=== PATIENT | female | born 1975 | race American Indian/Alaskan Native ===

== ENCOUNTER 2017-09-30 14:36 | Emergency (ER) | payer OTHER ==
[2017-09-30 14:47] VITALS: BP 151/89
--- NOTE | 2017-09-30 15:30 | Emergency Department Report ---
HPI - General Chief Complaint: Allergic Reaction Time Seen by Provider: 09/30/17 14:58 - HPI HPI: Patient is a 42-year-old female with no prior medical history other than consistent allergies who presents to ED complaining of right eyes and itching 3 days. Patient states that she was outside Saturday afternoon sleeping her porch and shortly after that starts experiencing some nose scratching. Patient is later on that day right eye got a bit swollen. Patient states she took some Benadryl Saturday and Saturday and swelling did not go down. Patient states she went to her primary care today around 11 AM and was given steroid shot around 12 :30 today. Patient states she also feels stuffy and says that his sinuses are acting up stuffed up. Patient says she went home and ate after she ate some peanuts she felt like she needed to come in to be evaluated. She denies wearing glasses or using contacts. She denies lower vision or loss of vision. She denies eye trauma or injuries to the eye. She denies difficulty swallowing or throat pain ED Past Medical Hx - Past Medical History Previous Medical History?: Yes Hx Asthma: Yes - Surgical History Past Surgical History?: No - Social History Smoking Status: Never Smoker Substance Use Type: None - Medications Home Medications: Home Medications Medication Instructions Recorded Confirmed Last Taken Type Cetirizine HCl [Zyrtec] 10 mg PO DAILY #30 tablet 09/30/17 Unknown Rx Erythromycin [Erythromycin Ophth 1 applic OP BID #1 tube 09/30/17 Unknown Rx Oint] Pseudoephedrine ER [Sudafed 12 Hr] 120 mg PO BID #20 tablet.er 09/30/17 Unknown Rx predniSONE [Deltasone] 20 mg PO QDAY #4 tab 09/30/17 Unknown Rx ED Review of Systems ROS: Stated complaint: ALLERGIC REACTION Other details as noted in HPI Constitutional: denies: chills, fever Eyes: denies: eye pain, eye discharge, vision change ENT: denies: ear pain, throat pain Respiratory: denies: cough, shortness of breath, wheezing Cardiovascular: denies: chest pain, palpitations Endocrine: no symptoms reported Gastrointestinal: denies: abdominal pain, nausea, diarrhea Genitourinary: denies: urgency, dysuria, discharge Musculoskeletal: denies: back pain, joint swelling, arthralgia Skin: denies: rash, lesions Neurological: denies: headache, weakness, paresthesias Psychiatric: denies: anxiety, depression Hematological/Lymphatic: denies: easy bleeding, easy bruising Physical Exam - Physical Exam Vital Signs: Vital Signs 09/30/17 14:45 Temperature 98.8 F Pulse Rate 111 H Respiratory 16 Rate Blood Pressure 151/89 O2 Sat by Pulse 96 Oximetry Physical Exam: GENERAL: Alert and oriented x3, no apparent distress, Normal Gait, atraumatic. HEAD: Head is normocephalic and a-traumatic. EYES: Extra ocular muscles are intact. Pupils are equal, round, and reactive to light and accommodation. Bilateral sclerae nonicteric erythematous, right upper eyelid moderately swollen, nontender to palpation, no conjunctival erythema, vision is intact bilaterally EARS: symetrical, atraumatic, non tender, ear canal clear and moderate cerumen, tympanic membrance non inflamed. gross auditory nml bilaterally. NOSE: Nose symetrical, Nontender,Nares appeared normal. Mildly inflamed turbinates MOUTH:Mouth is well hydrated and without lesions. Tonsils nonerythematous or swollen, Uvula midline, Tongue not elevated. Mucous membranes are moist. Posterior pharynx clear, no exudate or lesions. Patent airways. NECK: Supple. Non edematous, No lymphadenopathy or thyromegaly. No C-spine tenderness LUNGS: Symetrical with respiration, No wheezing, no rales or crackles, CTAB. HEART: S1, S2 present, regular rate and rhythm without murmur, no rubs, no gallops. Non tender to palpation NEUROLOGIC: The patient is cooperative with no focal neurologic deficits. Cranial nerves II through XII are grossly intact. Normal speech. SKIN: Warm and dry, No lesions, No ulceration or induration present. ED Course Vital Signs 09/30/17 14:45 Temperature 98.8 F Pulse Rate 111 H Respiratory 16 Rate Blood Pressure 151/89 O2 Sat by Pulse 96 Oximetry ED Medical Decision Making - Medical Decision Making 42-year-old female presents to ED for allergic rhinitis/periorbital cellulitis ED cours patient received prednisone and Zyrtec in the ED Vision is intact, visual acuity testing done normal I discussed the patient to follow up with primary care physician. I discussed the patient take medication as prescribed. I discussed the patient' s swelling go down Discussed the patient if any worsening symptoms or new onset of symptoms return to ED immediately Patient is stable, vital signs are normal, patient is in no acute or respiratory distress. Critical care attestation.: If time is entered above; I have spent that time in minutes in the direct care of this critically ill patient, excluding procedure time. ED Disposition Clinical Impression: Periorbital cellulitis of right eye Allergic rhinitis Qualifiers: Allergic rhinitis trigger: pollen Allergic rhinitis seasonality: seasonal Qualified Code(s): J30.1 - Allergic rhinitis due to pollen Disposition: TO HOME OR SELFCARE Is pt being admited?: No Does the pt Need Aspirin: No Condition: Stable Instructions: Allergic Rhinitis (ED), Sinusitis (ED), Periorbital Cellulitis in Children (ED), Anaphylaxis (ED), Allergies (ED) Additional Instructions: Make sure to follow up with the primary care physician as discussed. Take all your medications as you've been prescribed. If you have any worsening symptoms or develop new symptoms please return to ED immediately. Prescriptions: Cetirizine HCl [Zyrtec] 10 mg PO DAILY #30 tablet Erythromycin [Erythromycin Ophth Oint] 1 applic OP BID #1 tube predniSONE [Deltasone] 20 mg PO QDAY #4 tab Pseudoephedrine ER [Sudafed 12 Hr] 120 mg PO BID #20 tablet.er Referrals: ZARA ACOSTA MD [Referring] - 3-5 Days [facility] [Outside] - 3-5 Days [facility] [Outside] - 3-5 Days Forms: Work/School Release Form(ED) Time of Disposition: 16:05
[2017-09-30] MEDS ORDERED: CLARITIN PO ONE (15:31)
[2017-09-30] MEDS ORDERED: DELTASONE PO ONE (15:31)
== END 2017-09-30 16:39 | disposition home or self-care (01) ==
LOC: ED 14:36
DX: J30.9 Allergic rhinitis, unspecified (principal); L03.213 Periorbital cellulitis
CPT/HCPCS: 99283; J7512